=== PATIENT | male | born 1950 | race Caucasian/White ===

== ENCOUNTER → 2023-04-26 | Outpatient (CLI) | payer MEDICARE, BC | END | disposition home or self-care (01) | LOC: RESCLI 07:43 | PROVIDERS: ATTEND Internal Medicine | DX: I10 Essential (primary) hypertension (principal); G20.A1 Parkinson's disease without dyskinesia, without mention of fluctuations; E27.9 Disorder of adrenal gland, unspecified; I95.1 Orthostatic hypotension; E27.40 Unspecified adrenocortical insufficiency; F41.1 Generalized anxiety disorder; G89.29 Other chronic pain; Z79.899 Other long term (current) drug therapy; Z82.3 Family history of stroke ==

== ENCOUNTER → 2024-04-23 | Outpatient (CLI) | payer MEDICARE, BC | END | disposition home or self-care (01) | LOC: RESCLI 01:47 | PROVIDERS: ATTEND Internal Medicine | DX: I95.1 Orthostatic hypotension (principal); F32.9 Major depressive disorder, single episode, unspecified; E27.40 Unspecified adrenocortical insufficiency; N32.81 Overactive bladder; G89.29 Other chronic pain; G20.A1 Parkinson's disease without dyskinesia, without mention of fluctuations ==